=== PATIENT | female | born 1980 | race African-American/Black ===

== ENCOUNTER 2021-02-17 18:44 | Emergency (ER) | payer MEDICAID ==
[~2021-02-17] VITALS: Ht 162.6 cm; Wt 58.0 kg
[2021-02-17] MEDS ORDERED: ACETAMINOPHEN 325MG TABLET PO ONE (19:45)
[2021-02-17] MEDS ORDERED: TETANUS, DIPHTHERIA, PERTUSSIS VAC/PF 0.5ML (>7YR OLD) IM ONE (19:45)
[2021-02-17 20:47] VITALS: BP 125/77
== END 2021-02-17 20:51 | disposition home or self-care (01) ==
LOC: ER 18:44
DX: S00.531A Contusion of lip, initial encounter (principal); S01.512A Laceration without foreign body of oral cavity, initial encounter; S09.8XXA Other specified injuries of head, initial encounter; F32.9 Major depressive disorder, single episode, unspecified; Y04.0XXA Assault by unarmed brawl or fight, initial encounter; Y93.89 Activity, other specified; Y92.89 Other specified places as the place of occurrence of the external cause
CPT/HCPCS: 99283